=== PATIENT | male | born 1970 | race Caucasian/White ===

== ENCOUNTER 2021-04-19 00:11 | Inpatient (IN) ==
[2021-04-19 01:14] LABS: Basophils % 0.6 % (0.0-0.8); Eosinophils # 0.2 10*3/uL (0.0-0.87); Eosinophils % 3.2 % (0.00-10.9); Hematocrit 44.1 VOL% (42.0-52.0); Immature Granulocytes % 0.3 %; Immature Granulocytes Absolute 0.02 #; Lymphocytes # 2.1 10*3/uL (1.4-4.0); Lymphocytes % 32.2 % (21.2-54.2); Mean Corpuscular Volume 86.8 FL (87-102); Mean Platelet Volume 9.2 FL (9.6-12.0); Monocytes % 5.8 % (1.7-12.7); Neutrophils % 57.9 % (38.7-73.9); Platelet Count 240 T/CUMM (130-400); Red Blood Count 5.08 MC/CUMM (3.8-5.5); Red Cell Distribution Width 13.2 % (9.3-17.3); White Blood Count 6.6 T/CUMM (4-12)
[2021-04-19 01:26] LABS: Albumin 3.9 G/DL (3.4-5.0); Bilirubin,Total 1.3 MG/DL (0.20-1.00); Calcium 9.2 MG/DL (8.5-10.1); Potassium 4.2 MMOL/L (3.5-5.1)
[2021-04-19] MEDS ORDERED: DEXTROSE 50% 25 GM/50 ML VIAL IV PRN ×2 (02:16→10:51)
[2021-04-19] MEDS ORDERED: ACETAMINOPHEN 325 MG TABLET PO PRN (02:16)
[2021-04-19] MEDS ORDERED: GLUCAGON 1 MG VIAL IM PRN ×2 (02:16→10:51)
[2021-04-19] MEDS ORDERED: NITROGLYCERIN SL 0.4 MG TABLET SL ONE ×3 (03:52→11:44)
[2021-04-19 04:01] LABS: INR 0.9; PT Patient Result 10.3 SECS (10.5-12.0)
[2021-04-19] MEDS ORDERED: NICOTINE 21 MG/24 HR PATCH TRANSDERM PRN (04:20)
[2021-04-19] MEDS ORDERED: ENOXAPARIN 120 MG/0.8 ML SYRINGE SUBCUT ONE (04:26)
[2021-04-19] MEDS ORDERED: MORPHINE 2 MG/1 ML SYRINGE IM PRN (04:27)
[2021-04-19] MEDS ORDERED: ENOXAPARIN 120 MG/0.8 ML SYRINGE SUBCUT SCH (05:31)
[2021-04-19 06:44] LABS: Risk Ratio 6.93; VLDL Cholesterol 40.4 MG/DL
[2021-04-19] MEDS ORDERED: POTASSIUM CHLORIDE RIDER 10 MEQ/100 ML PREMIX IV PRN (08:30)
[2021-04-19] MEDS ORDERED: MAGNESIUM SULF RIDER 2 GM/50 ML PREMIX IV PRN (08:30)
[2021-04-19] MEDS ORDERED: LIDOCAINE 1% 20 ML VIAL ONE (08:30)
[2021-04-19] MEDS ORDERED: diphenhydrAMINE CAP 25 MG CAPSULE PO ONE (08:30)
[2021-04-19] MEDS ORDERED: DIAZEPAM 5 MG TABLET PO ONE (08:30)
[2021-04-19] MEDS ORDERED: HEPARIN/NACL 0.9% 2 UNITS/ML 3,000 UNIT/1,500 ML BAG IV ONE (08:30)
[2021-04-19] MEDS: ASPIRIN 325 MG TABLET PO SCH (08:49)
[2021-04-19] MEDS: SODIUM CHLORIDE 0.9% 1,000 ML IV SCH ×3 (08:50→17:20)
[2021-04-19] MEDS ORDERED: fentaNYL 100 MCG/2 ML VIAL ONE (08:55)
[2021-04-19] MEDS ORDERED: MIDAZOLAM 2 MG/2 ML VIAL ONE ×2 (08:55→09:17)
[2021-04-19] MEDS ORDERED: ENOXAPARIN 40 MG/0.4 ML SYRINGE SUBCUT SCH (09:00)
[2021-04-19] MEDS ORDERED: NITROGLYCERIN DRIP 50 MG/250 ML BOTTLE IV ONE (09:00)
[2021-04-19] MEDS ORDERED: VERAPAMIL 5 MG/2 ML VIAL ONE (09:00)
[2021-04-19] MEDS ORDERED: HEPARIN 5,000 UNIT/1 ML VIAL ONE (09:04)
[2021-04-19] MEDS ORDERED: MORPHINE 10 MG/1 ML VIAL ONE (10:04)
[2021-04-19] MEDS ORDERED: HEPARIN DRIP 25,000 UNITS/500 ML PREMIX IV ONE (10:14)
[2021-04-19] MEDS ORDERED: HEPARIN DRIP 25,000 UNITS/500 ML PREMIX IV SCH (10:30)
[2021-04-19] MEDS: NITROGLYCERIN SL 0.4 MG TABLET SL PRN (11:45)
[2021-04-19] MEDS: CHLORHEXIDINE 4% SOLN 118 ML BOTTLE TOP SCH ×2 (17:08→23:01)
[2021-04-19] MEDS: ROSUVASTATIN 20 MG TABLET PO SCH (17:09)
[2021-04-19 17:19] LABS: ABG Base Excess 0.2 MMOL/L (-2.5-2.5); ABG HCO3 24.6 MMOL/L (20-26); ABG PO2 75.8 MM HG (80-95); ABG TCO2 20.3 MMOL/L (23-27)
[2021-04-19] MEDS ORDERED: ZALEPLON 5 MG CAPSULE PO PRN (20:09)
[2021-04-19] MEDS: ASCORBIC ACID 500 MG TABLET PO SCH (22:48)
[2021-04-19] MEDS: CHLORHEXIDINE 0.12% ORAL RINSE 60 ML BOTTLE SWISH/SPIT SCH (22:49)
[2021-04-20] MEDS: NITROGLYCERIN SL 0.4 MG TABLET SL PRN ×3 (00:40→05:47)
[2021-04-20] MEDS ORDERED: hydrALAZINE 20 MG/1 ML VIAL IV ONE (00:42)
[2021-04-20] MEDS ORDERED: HYDROmorphone 2 MG/1 ML VIAL IV ONE (00:43)
[2021-04-20] MEDS ORDERED: HYDROmorphone 2 MG/1 ML VIAL IV PRN (00:43)
[2021-04-20] MEDS: SODIUM CHLORIDE 0.9% 1,000 ML IV SCH ×3 (01:27→17:53)
[2021-04-20] MEDS ORDERED: HEPARIN 5,000 UNIT/1 ML VIAL IV PRN (01:30)
[2021-04-20] MEDS ORDERED: HEPARIN DRIP 25,000 UNITS/500 ML PREMIX IV SCH (01:30)
[2021-04-20] MEDS ORDERED: VANCOMYCIN 500 MG VIAL ONE (04:55)
[2021-04-20] MEDS ORDERED: VANCOMYCIN 1,000 MG VIAL ONE (04:55)
[2021-04-20] MEDS ORDERED: PAPAVERINE 60 MG/2 ML VIAL ONE (04:55)
[2021-04-20] MEDS ORDERED: NITROGLYCERIN DRIP 50 MG/250 ML BOTTLE IV ONE ×2 (05:56→11:02)
[2021-04-20] MEDS ORDERED: PHENYLEPHRINE DRIP 20 MG/250 ML PREMIX IV ONE (05:56)
[2021-04-20] MEDS ORDERED: LACTATED RINGERS 1,000 ML IV ONE (06:10)
[2021-04-20] MEDS ORDERED: SODIUM CHLORIDE 0.9% 1,000 ML IV ONE (06:10)
[2021-04-20] MEDS ORDERED: SODIUM CHLORIDE 0.9% 250 ML IV ONE ×2 (06:10→10:56)
[2021-04-20] MEDS ORDERED: LIDOCAINE 2% 5 ML VIAL ONE ×2 (06:10→10:14)
[2021-04-20] MEDS ORDERED: AMINOCAPROIC ACID 5,000 MG/20 ML VIAL ONE (06:10)
[2021-04-20] MEDS ORDERED: VECURONIUM 10 MG VIAL IV ONE (06:10)
[2021-04-20] MEDS ORDERED: SEVOFLURANE 1 UNIT/15 MINUTE INH ONE ×2 (06:10→10:56)
[2021-04-20] MEDS ORDERED: MIDAZOLAM 10 MG/2 ML VIAL ONE ×3 (06:10)
[2021-04-20] MEDS ORDERED: MINERAL OIL/PETROLATUM OPH OINT 3.5 GM TUBE ONE (06:10)
[2021-04-20] MEDS ORDERED: CALCIUM CHLORIDE 1,000 MG/10 ML VIAL IV ONE (06:10)
[2021-04-20] MEDS ORDERED: ETOMIDATE 40 MG/20 ML VIAL IV ONE (06:10)
[2021-04-20] MEDS ORDERED: ePHEDrine 50 MG/ML VIAL ONE (06:10)
[2021-04-20] MEDS ORDERED: SUFentanil 250 MCG/5 ML AMP ONE (06:11)
[2021-04-20] MEDS ORDERED: CEFUROXIME INJ 1,500 MG in SODIUM CHLORIDE 0.9% 100 ML IV ONE (06:30)
[2021-04-20] MEDS ORDERED: PANTOPRAZOLE 40 MG TABLET PO ONE (06:30)
[2021-04-20] MEDS ORDERED: DIAZEPAM 5 MG TABLET PO ONE (06:30)
[2021-04-20 07:36] LABS: ABG Base Excess -0.6 MMOL/L (-2.5-2.5); ABG HCO3 24.2 MMOL/L (20-26); ABG Oxygen Saturation 99.2 % (95-100); ABG PCO2 40.6 MM HG (35-48); ABG PH 7.394 (7.35-7.45); ABG PO2 307.5 MM HG (80-95); ABG TCO2 25.5 MMOL/L (23-27); Glucose Heart Surgery 102 MG/DL (74-106); Hemoglobin Heart Surgery 13.5 G/DL (14.0-18.0); Ionized Calcium Arterial 1.12 MMOL/L (1.21-1.46); PCO2 Patient Temp Arterial 40.6 MMHG; PH Patient Temp Arterial 7.394; PO2 Patient Temp Arterial 307.5 MM HG; Patient Temperature 37 CELCIUS; Potassium Heart/CVR 3.5 MMOL/L (3.5-5.1); Sodium Heart/CVR 137 MMOL/L (135-145)
[2021-04-20 07:40] LABS: Bilirubin,Urine Negative (Negative); Blood, Urine Negative (Negative); Glucose,Urine (UA) Negative (Negative); Ketones,Urine Negative (Negative); Nitrite,Urine Negative (Negative); Protein,Urine Negative; RBC,Urine <1 /HPF (0-4); Squamous Epithelial Cell,Urine Occasional /HPF (0-10); Urine Appearance CLEAR (Clear); Urine Color Straw (Yellow); Urine Specific Gravity 1.008 (1.001-1.035); Urine Urobilinogen < 2.0 EU/DL (0.2-1.0)
[2021-04-20] MEDS ORDERED: SODIUM BICARBONATE 50 MEQ/50 ML VIAL IV ONE ×2 (07:52→10:15)
[2021-04-20] MEDS ORDERED: NITROPRUSSIDE 50 MG/2 ML VIAL ONE (07:52)
[2021-04-20] MEDS ORDERED: CALCIUM CHLORIDE 1,000 MG/10 ML SYRINGE IV ONE ×2 (07:53→07:54)
[2021-04-20] MEDS ORDERED: PHENYLEPHRINE DRIP 40 MG/250 ML PREMIX IV ONE (07:53)
[2021-04-20] MEDS ORDERED: POTASSIUM CHLORIDE RIDER 20 MEQ/100 ML PREMIX IV ONE (07:53)
[2021-04-20 08:51] LABS: Hematocrit Heart Surgery 31.3 PERCENT (42-52); Hemoglobin Heart Surgery 10.1 G/DL (14.0-18.0); PCO2 Patient Temp Venous 37.8 MM HG; PH Patient Temp Venous 7.428; PO2 Patient Temp Venous 37.1 MM HG; Potassium Heart/CVR 4.3 MMOL/L (3.5-5.1); VBG Base Excess 0.9 MEQ/L (0-4); VBG HCO3 24.9 MEQ/L (24-28); VBG Oxygen Saturation 80.9 %; VBG PCO2 43.7 MMHG (41-51); VBG PH 7.384; VBG PO2 45.7 MMHG (17-40); VBG Total CO2 23.8 MMOL/L
[2021-04-20 09:24] LABS: Hematocrit Heart Surgery 34.5 PERCENT (42-52); Hemoglobin Heart Surgery 11.2 G/DL (14.0-18.0); PCO2 Patient Temp Venous 33.3 MM HG; PH Patient Temp Venous 7.468; Potassium Heart/CVR 4.2 MMOL/L (3.5-5.1); VBG Base Excess 0.9 MEQ/L (0-4); VBG Oxygen Saturation 83.8 %; VBG PCO2 38.5 MMHG (41-51); VBG PH 7.424; VBG PO2 46.8 MMHG (17-40); VBG Total CO2 22.6 MMOL/L
[2021-04-20 10:11] LABS: ABG Base Excess -1.5 MMOL/L (-2.5-2.5); ABG HCO3 23.9 MMOL/L (20-26); ABG Oxygen Saturation 98.7 % (95-100); ABG PCO2 42.5 MM HG (35-48); ABG PH 7.367 (7.35-7.45); ABG PO2 185.8 MM HG (80-95); ABG TCO2 25.2 MMOL/L (23-27); Glucose Heart Surgery 185 MG/DL (74-106); Hemoglobin Heart Surgery 12.8 G/DL (14.0-18.0); Ionized Calcium Arterial 1.18 MMOL/L (1.21-1.46); PCO2 Patient Temp Arterial 42.5 MMHG; PH Patient Temp Arterial 7.367; PO2 Patient Temp Arterial 185.8 MM HG; Patient Temperature 37 CELCIUS; Potassium Heart/CVR 3.7 MMOL/L (3.5-5.1); Sodium Heart/CVR 133 MMOL/L (135-145)
[2021-04-20] MEDS ORDERED: MANNITOL 100 GM/500 ML BAG IV ONE (10:14)
[2021-04-20] MEDS ORDERED: ALBUMIN 25% 25 GM/100 ML VIAL IV ONE (10:14)
[2021-04-20] MEDS ORDERED: DEXTROSE 5% KCL 20 MEQ 20 MEQ/1,000 ML BAG IV ONE (10:14)
[2021-04-20] MEDS ORDERED: MAGNESIUM SULFATE 5 GM/10 ML VIAL IV ONE (10:14)
[2021-04-20] MEDS ORDERED: methylPREDNISolone SOD SUC 1,000 MG/8 ML VIAL ONE (10:14)
[2021-04-20] MEDS ORDERED: PROTAMINE SULFATE 250 MG/25 ML VIAL IV ONE (10:15)
[2021-04-20] MEDS ORDERED: HEPARIN 10,000 UNIT/10 ML VIAL ONE (10:15)
[2021-04-20] MEDS ORDERED: FUROSEMIDE 20 MG/2 ML VIAL ONE (10:15)
[2021-04-20] MEDS ORDERED: AMIODARONE 150 MG/3 ML VIAL ONE (10:25)
[2021-04-20] MEDS ORDERED: AMIODARONE 450 MG/9 ML VIAL IV ONE (10:29)
[2021-04-20] MEDS ORDERED: ALBUTEROL INHALER 18 GM INH ONE (10:56)
[2021-04-20] MEDS ORDERED: SODIUM CHLORIDE 0.9% 100 ML IV ONE (10:56)
[2021-04-20] MEDS ORDERED: PROTAMINE SULFATE 50 MG/5 ML VIAL IV ONE ×2 (10:58→11:10)
[2021-04-20] MEDS ORDERED: ACETAMINOPHEN 650 MG SUPP RECTAL PRN (11:03)
[2021-04-20] MEDS ORDERED: INSULIN REGULAR 100 UNIT/ML IV PRN (11:03)
[2021-04-20] MEDS ORDERED: MIDAZOLAM 2 MG/2 ML VIAL IV PRN (11:03)
[2021-04-20] MEDS ORDERED: MAGNESIUM SULF RIDER 4 GM/100 ML PREMIX IV PRN (11:03)
[2021-04-20] MEDS ORDERED: INSULIN REGULAR 100 UNIT/ML IV ONE (11:03)
[2021-04-20] MEDS ORDERED: PHENYLEPHRINE DRIP 40 MG/250 ML PREMIX IV PRN (11:03)
[2021-04-20] MEDS ORDERED: ONDANSETRON 4 MG/2 ML VIAL IV PRN (11:03)
[2021-04-20] MEDS ORDERED: DEXTROSE 50% 25 GM/50 ML VIAL IV PRN ×2 (11:03)
[2021-04-20] MEDS ORDERED: NITROPRUSSIDE 100 MG in DEXTROSE 5% 250 ML IV PRN (11:03)
[2021-04-20] MEDS ORDERED: CALCIUM CHLORIDE 1,000 MG/10 ML SYRINGE IV PRN (11:03)
[2021-04-20] MEDS ORDERED: VECURONIUM 10 MG VIAL IV PRN ×2 (11:03)
[2021-04-20] MEDS ORDERED: MAGNESIUM SULF RIDER 2 GM/50 ML PREMIX IV PRN (11:03)
[2021-04-20] MEDS ORDERED: POTASSIUM CHLORIDE RIDER 10 MEQ/100 ML PREMIX IV PRN (11:03)
[2021-04-20] MEDS ORDERED: SODIUM CHLORIDE 0.45% 1,000 ML IV SCH ×2 (11:03)
[2021-04-20] MEDS ORDERED: INSULIN REGULAR DRIP 100 ML IV SCH (11:03)
[2021-04-20] MEDS ORDERED: NITROGLYCERIN DRIP 50 MG/250 ML BOTTLE IV PRN (11:09)
[2021-04-20 11:11] LABS: Basophils % 0.2 % (0.0-0.8); Eosinophils # 0.1 10*3/uL (0.0-0.87); Eosinophils % 0.9 % (0.00-10.9); Hematocrit 40.7 VOL% (42.0-52.0); Hemoglobin 13.7 GM/DL (14.0-18.0); Immature Granulocytes % 0.3 %; Immature Granulocytes Absolute 0.03 #; Lymphocytes # 1.5 10*3/uL (1.4-4.0); Lymphocytes % 16.8 % (21.2-54.2); Mean Corpuscular HGB Conc 33.7 GM/DL (32-36); Mean Corpuscular Volume 88.1 FL (87-102); Mean Platelet Volume 8.9 FL (9.6-12.0); Monocytes % 3.1 % (1.7-12.7); Neutrophils % 78.7 % (38.7-73.9); Platelet Count 185 T/CUMM (130-400); Red Blood Count 4.62 MC/CUMM (3.8-5.5); Red Cell Distribution Width 13.4 % (9.3-17.3); White Blood Count 8.6 T/CUMM (4-12)
[2021-04-20 11:13] LABS: ABG Base Excess -0.5 MMOL/L (-2.5-2.5); ABG HCO3 24.7 MMOL/L (20-26); ABG Oxygen Saturation 98.1 % (95-100); ABG PCO2 42.5 MM HG (35-48); ABG PH 7.382 (7.35-7.45); ABG PO2 117.8 MM HG (80-95); Glucose Heart Surgery 189 MG/DL (74-106); Potassium Heart/CVR 4.5 MMOL/L (3.5-5.1)
[2021-04-20] MEDS: LACTATED RINGERS 250 ML IV PRN ×4 (11:29→13:54)
[2021-04-20] MEDS: ASPIRIN 325 MG TABLET PO SCH (11:29)
[2021-04-20] MEDS: ASCORBIC ACID 500 MG TABLET PO SCH (11:30)
[2021-04-20] MEDS: ROSUVASTATIN 20 MG TABLET PO SCH (11:30)
[2021-04-20] MEDS ORDERED: AMIODARONE INJ 450 MG in DEXTROSE 5% 241 ML IV SCH ×2 (11:30→18:30)
[2021-04-20] MEDS: CHLORHEXIDINE 0.12% ORAL RINSE 60 ML BOTTLE SWISH/SPIT SCH (11:30)
[2021-04-20] MEDS: CHLORHEXIDINE 4% SOLN 118 ML BOTTLE TOP SCH (11:31)
[2021-04-20] MEDS: KETOROLAC 30 MG/1 ML VIAL IV SCH ×3 (11:33→23:41)
[2021-04-20 11:35] LABS: CKMB % 4.8 %
[2021-04-20 11:37] LABS: High Sensitive Troponin I* 2342.9 ng/L (0-78)
[2021-04-20 11:45] LABS: INR 1.1; Partial Thromboplastin Time 27.2 SECS (23.8-32.1)
[2021-04-20 11:46] LABS: Albumin 3.5 G/DL (3.4-5.0); Bilirubin,Total 1.6 MG/DL (0.20-1.00); Calcium 9.5 MG/DL (8.5-10.1); Potassium 4.5 MMOL/L (3.5-5.1); Total Protein 6.6 G/DL (6.4-8.2)
[2021-04-20] MEDS: ALBUMIN 5% 12.5 GM/250 ML VIAL IV PRN ×2 (12:01→15:15)
[2021-04-20] MEDS: MIDAZOLAM 10 MG/2 ML VIAL IV PRN ×3 (12:22→13:54)
[2021-04-20 12:49] LABS: ABG Base Excess 0.7 MMOL/L (-2.5-2.5); ABG HCO3 25.1 MMOL/L (20-26); ABG PH 7.402 (7.35-7.45); ABG TCO2 22.4 MMOL/L (23-27); Glucose Heart Surgery 200 MG/DL (74-106); Hematocrit Heart Surgery 39.3 PERCENT (42-52); Hemoglobin Heart Surgery 12.8 G/DL (14.0-18.0); Potassium Heart/CVR 3.6 MMOL/L (3.5-5.1)
[2021-04-20] MEDS: POTASSIUM CHLORIDE RIDER 20 MEQ/100 ML PREMIX IV PRN ×4 (12:53→20:07)
[2021-04-20 13:47] LABS: ABG Base Excess 0.1 MMOL/L (-2.5-2.5); ABG HCO3 24.5 MMOL/L (20-26); ABG Oxygen Saturation 99.3 % (95-100); ABG PCO2 39.9 MM HG (35-48); ABG PH 7.401 (7.35-7.45); ABG TCO2 21.8 MMOL/L (23-27); Glucose Heart Surgery 191 MG/DL (74-106); Hematocrit Heart Surgery 38.2 PERCENT (42-52); Hemoglobin Heart Surgery 12.4 G/DL (14.0-18.0); Potassium Heart/CVR 4.2 MMOL/L (3.5-5.1)
[2021-04-20] MEDS: MORPHINE 10 MG/1 ML VIAL IV PRN ×3 (14:56→22:27)
[2021-04-20 16:44] LABS: ABG Base Excess 1.2 MMOL/L (-2.5-2.5); ABG HCO3 25.1 MMOL/L (20-26); ABG PCO2 37.3 MM HG (35-48); ABG PH 7.446 (7.35-7.45); ABG TCO2 26.3 MMOL/L (23-27)
[2021-04-20 16:45] LABS: ABG Oxygen Saturation 96.7 % (95-100); Glucose Heart Surgery 193 MG/DL (74-106); Hemoglobin Heart Surgery 12.2 G/DL (14.0-18.0); Potassium Heart/CVR 3.8 MMOL/L (3.5-5.1)
[2021-04-20] MEDS ORDERED: FUROSEMIDE 40 MG/4 ML VIAL ONE (18:13)
[2021-04-20] MEDS ORDERED: FUROSEMIDE 40 MG/4 ML VIAL IV ONE (18:16)
[2021-04-20] MEDS: CEFUROXIME INJ 1,500 MG in SODIUM CHLORIDE 0.9% 100 ML IV SCH (18:18)
[2021-04-20 19:19] LABS: ABG Base Excess 0.6 MMOL/L (-2.5-2.5); ABG HCO3 24.9 MMOL/L (20-26); ABG Oxygen Saturation 95.5 % (95-100); ABG PCO2 34.6 MM HG (35-48); ABG PH 7.451 (7.35-7.45); ABG PO2 72.2 MM HG (80-95); ABG TCO2 21.1 MMOL/L (23-27); Glucose Heart Surgery 205 MG/DL (74-106); Hemoglobin Heart Surgery 12.7 G/DL (14.0-18.0)
[2021-04-20 19:48] LABS: CKMB % 3.3 %
[2021-04-20] MEDS ORDERED: CHLORHEXIDINE 0.12% ORAL RINSE 60 ML BOTTLE SWISH/SPIT SCH (21:00)
[2021-04-20 21:15] LABS: ABG Base Excess 0.6 MMOL/L (-2.5-2.5); ABG HCO3 24.3 MMOL/L (20-26); ABG Oxygen Saturation 98.2 % (95-100); ABG PCO2 35.7 MM HG (35-48); ABG PO2 120.6 MM HG (80-95); ABG TCO2 25.4 MMOL/L (23-27); Glucose Heart Surgery 189 MG/DL (74-106); Hemoglobin Heart Surgery 12.8 G/DL (14.0-18.0); Potassium Heart/CVR 4.3 MMOL/L (3.5-5.1)
[2021-04-20 21:56] LABS: ABG Base Excess 0.1 MMOL/L (-2.5-2.5); ABG HCO3 24.5 MMOL/L (20-26); ABG Oxygen Saturation 98.4 % (95-100); ABG PCO2 37.1 MM HG (35-48); ABG PH 7.423 (7.35-7.45); ABG TCO2 21.3 MMOL/L (23-27); Glucose Heart Surgery 206 MG/DL (74-106); Hematocrit Heart Surgery 38.2 PERCENT (42-52); Hemoglobin Heart Surgery 12.4 G/DL (14.0-18.0); Potassium Heart/CVR 4.2 MMOL/L (3.5-5.1)
[2021-04-20 22:38] LABS: ABG Base Excess -1.1 MMOL/L (-2.5-2.5); ABG HCO3 23.5 MMOL/L (20-26); ABG Oxygen Saturation 98.4 % (95-100); ABG PCO2 37.1 MM HG (35-48); ABG PH 7.404 (7.35-7.45); ABG TCO2 20.4 MMOL/L (23-27); Glucose Heart Surgery 201 MG/DL (74-106); Hematocrit Heart Surgery 38.6 PERCENT (42-52); Hemoglobin Heart Surgery 12.5 G/DL (14.0-18.0); Potassium Heart/CVR 4.1 MMOL/L (3.5-5.1)
[2021-04-20 23:21] LABS: ABG Base Excess -0.6 MMOL/L (-2.5-2.5); ABG HCO3 23.9 MMOL/L (20-26); ABG Oxygen Saturation 99.1 % (95-100); ABG PCO2 37.4 MM HG (35-48); ABG TCO2 20.8 MMOL/L (23-27); Glucose Heart Surgery 208 MG/DL (74-106); Hematocrit Heart Surgery 38.7 PERCENT (42-52); Hemoglobin Heart Surgery 12.6 G/DL (14.0-18.0); Potassium Heart/CVR 4.2 MMOL/L (3.5-5.1)
[2021-04-21] MEDS: MORPHINE 10 MG/1 ML VIAL IV PRN (02:22)
[2021-04-21 03:44] LABS: ABG HCO3 25.3 MMOL/L (20-26); ABG Oxygen Saturation 97.7 % (95-100); ABG PCO2 34.3 MM HG (35-48); ABG PO2 89.5 MM HG (80-95); ABG TCO2 21.5 MMOL/L (23-27); Glucose Heart Surgery 189 MG/DL (74-106); Hematocrit Heart Surgery 36.8 PERCENT (42-52); Potassium Heart/CVR 3.9 MMOL/L (3.5-5.1)
[2021-04-21] MEDS: POTASSIUM CHLORIDE RIDER 20 MEQ/100 ML PREMIX IV PRN (03:52)
[2021-04-21] MEDS ORDERED: FUROSEMIDE 40 MG/4 ML VIAL IV ONE (03:57)
[2021-04-21 04:11] LABS: Albumin 3.7 G/DL (3.4-5.0); Bilirubin,Direct 0.24 MG/DL (0.0-0.20); Bilirubin,Total 0.6 MG/DL (0.20-1.00); Calcium 8.5 MG/DL (8.5-10.1); Osmolality,Calculated 280.7 MOS/KG (273-304); Potassium 3.9 MMOL/L (3.5-5.1); Total Protein 6.5 G/DL (6.4-8.2)
[2021-04-21 04:14] LABS: CKMB % 3.1 %
[2021-04-21 04:29] LABS: High Sensitive Troponin I* 21053.5 ng/L (0-78)
[2021-04-21] MEDS: KETOROLAC 30 MG/1 ML VIAL IV SCH ×4 (05:01→20:15)
[2021-04-21] MEDS: CEFUROXIME INJ 1,500 MG in SODIUM CHLORIDE 0.9% 100 ML IV SCH (06:44)
[2021-04-21] MEDS ORDERED: MAGNESIUM SULF RIDER 2 GM/50 ML PREMIX IV PRN (07:16)
[2021-04-21] MEDS ORDERED: ZALEPLON 5 MG CAPSULE PO PRN (07:16)
[2021-04-21] MEDS ORDERED: ACETAMINOPHEN 325 MG TABLET PO PRN (07:16)
[2021-04-21] MEDS ORDERED: POTASSIUM CHLORIDE 20 MEQ TABLET PO PRN (07:16)
[2021-04-21] MEDS ORDERED: DEXTROSE 50% 25 GM/50 ML VIAL IV PRN ×2 (07:16)
[2021-04-21] MEDS ORDERED: ALUMINUM/MAGNES/SIMETH MAX STR 30 ML UDCUP PO PRN (07:16)
[2021-04-21] MEDS ORDERED: MAGNESIUM HYDROXIDE SUSP 30 ML UDCUP PO PRN (07:16)
[2021-04-21] MEDS ORDERED: ONDANSETRON 4 MG/2 ML VIAL IV PRN (07:16)
[2021-04-21] MEDS ORDERED: GLUCAGON 1 MG VIAL IM PRN ×2 (07:16)
[2021-04-21] MEDS ORDERED: MAGNESIUM SULF RIDER 4 GM/100 ML PREMIX IV PRN (07:16)
[2021-04-21] MEDS ORDERED: MORPHINE 2 MG/1 ML SYRINGE IV PRN (07:16)
[2021-04-21] MEDS: DOCUSATE SODIUM 100 MG CAPSULE PO SCH (08:20)
[2021-04-21] MEDS: ASPIRIN EC 325 MG TABLET PO SCH (08:20)
[2021-04-21] MEDS: METOPROLOL TARTRATE 25 MG TABLET PO SCH ×2 (08:20→21:00)
[2021-04-21] MEDS: FERROUS SULFATE 325 MG TABLET PO SCH (08:20)
[2021-04-21] MEDS: oxyCODONE/ACETAMINOPHEN 5-325 MG TABLET PO PRN ×2 (08:21→16:48)
[2021-04-21] MEDS: PANTOPRAZOLE 40 MG TABLET PO SCH (08:22)
[2021-04-21] MEDS: SODIUM CHLOR 0.45% KCL 20 MEQ 20 MEQ/1,000 ML BAG IV SCH (08:23)
[2021-04-21] MEDS: CHLORHEXIDINE 0.12% ORAL RINSE 60 ML BOTTLE SWISH/SPIT SCH ×2 (08:32→21:01)
[2021-04-21] MEDS ORDERED: PANTOPRAZOLE 40 MG TABLET PO SCH (09:00)
[2021-04-21] MEDS: ASCORBIC ACID 500 MG TABLET PO SCH ×3 (09:45→21:00)
[2021-04-21] MEDS: ROSUVASTATIN 20 MG TABLET PO SCH (20:59)
[2021-04-22] MEDS: KETOROLAC 30 MG/1 ML VIAL IV SCH ×4 (01:31→20:37)
[2021-04-22 04:48] LABS: Basophils % 0.2 % (0.0-0.8); Eosinophils # 0.1 10*3/uL (0.0-0.87); Eosinophils % 0.8 % (0.00-10.9); Hematocrit 32.9 VOL% (42.0-52.0); Hemoglobin 10.7 GM/DL (14.0-18.0); Immature Granulocytes % 0.3 %; Immature Granulocytes Absolute 0.03 #; Lymphocytes # 1.6 10*3/uL (1.4-4.0); Lymphocytes % 17.7 % (21.2-54.2); Mean Corpuscular HGB Conc 32.5 GM/DL (32-36); Mean Corpuscular Volume 90.6 FL (87-102); Mean Platelet Volume 9.6 FL (9.6-12.0); Monocytes % 7.9 % (1.7-12.7); Neutrophils % 73.1 % (38.7-73.9); Platelet Count 203 T/CUMM (130-400); Red Blood Count 3.63 MC/CUMM (3.8-5.5); Red Cell Distribution Width 13.8 % (9.3-17.3); White Blood Count 8.9 T/CUMM (4-12)
[2021-04-22 05:05] LABS: Calcium 8.4 MG/DL (8.5-10.1); Osmolality,Calculated 277.8 MOS/KG (273-304)
[2021-04-22 05:09] LABS: Albumin 3.2 G/DL (3.4-5.0); Bilirubin,Direct 0.18 MG/DL (0.0-0.20); Bilirubin,Indirect 0.7 MG/DL (0.0-1.0); Bilirubin,Total 0.9 MG/DL (0.20-1.00); CKMB % 0.8 %; Calcium 8.4 MG/DL (8.5-10.1); Potassium 3.9 MMOL/L (3.5-5.1); Total Protein 6.2 G/DL (6.4-8.2)
[2021-04-22 05:10] LABS: High Sensitive Troponin I* 13868.3 ng/L (0-78)
[2021-04-22] MEDS ORDERED: FUROSEMIDE 40 MG/4 ML VIAL IV ONE (06:00)
[2021-04-22] MEDS: SODIUM CHLOR 0.45% KCL 20 MEQ 20 MEQ/1,000 ML BAG IV SCH (07:48)
[2021-04-22] MEDS: ASCORBIC ACID 500 MG TABLET PO SCH ×2 (09:24→20:37)
[2021-04-22] MEDS: FERROUS SULFATE 325 MG TABLET PO SCH (09:25)
[2021-04-22] MEDS: DOCUSATE SODIUM 100 MG CAPSULE PO SCH (09:25)
[2021-04-22] MEDS: CHLORHEXIDINE 0.12% ORAL RINSE 60 ML BOTTLE SWISH/SPIT SCH ×2 (09:25→20:37)
[2021-04-22] MEDS: PANTOPRAZOLE 40 MG TABLET PO SCH (09:25)
[2021-04-22] MEDS: ASPIRIN EC 325 MG TABLET PO SCH (09:25)
[2021-04-22] MEDS: METOPROLOL TARTRATE 25 MG TABLET PO SCH ×2 (09:25→20:37)
[2021-04-22] MEDS: oxyCODONE/ACETAMINOPHEN 5-325 MG TABLET PO PRN (11:33)
[2021-04-22] MEDS: ROSUVASTATIN 20 MG TABLET PO SCH (20:37)
[2021-04-23] MEDS: KETOROLAC 30 MG/1 ML VIAL IV SCH ×4 (01:42→18:24)
[2021-04-23 06:26] LABS: Basophils % 0.4 % (0.0-0.8); Eosinophils # 0.1 10*3/uL (0.0-0.87); Eosinophils % 1.9 % (0.00-10.9); Hematocrit 30.1 VOL% (42.0-52.0); Hemoglobin 9.9 GM/DL (14.0-18.0); Immature Granulocytes % 0.6 %; Immature Granulocytes Absolute 0.04 #; Lymphocytes # 1.7 10*3/uL (1.4-4.0); Mean Corpuscular HGB Conc 32.9 GM/DL (32-36); Mean Corpuscular Volume 90.4 FL (87-102); Mean Platelet Volume 9.5 FL (9.6-12.0); Monocytes % 7.9 % (1.7-12.7); Neutrophils % 65.2 % (38.7-73.9); Platelet Count 179 T/CUMM (130-400); Red Blood Count 3.33 MC/CUMM (3.8-5.5); Red Cell Distribution Width 13.6 % (9.3-17.3); White Blood Count 7.2 T/CUMM (4-12)
[2021-04-23 07:14] LABS: Calcium 8.2 MG/DL (8.5-10.1); Potassium 3.8 MMOL/L (3.5-5.1)
[2021-04-23 07:20] LABS: Alanine Aminotransferase 82 U/L (16-61); Albumin 2.9 G/DL (3.4-5.0); Alkaline Phosphatase 73 U/L (45-117); Aspartate Amino Transferase 47 U/L (0-37); Bilirubin,Indirect 0.4 MG/DL (0.0-1.0); Blood Urea Nitrogen 30 MG/DL (7-18); Calcium 8.3 MG/DL (8.5-10.1); Carbon Dioxide 28 MMOL/L (21-32); Estimated Glom Filtration Rate 107 ML/MIN; Glucose 99 MG/DL (74-106); Osmolality,Calculated 280.7 MOS/KG (273-304); Potassium 3.7 MMOL/L (3.5-5.1); Sodium 138 MMOL/L (136-145); Total Protein 6.1 G/DL (6.4-8.2)
[2021-04-23] MEDS: DOCUSATE SODIUM 100 MG CAPSULE PO SCH (09:44)
[2021-04-23] MEDS: ASPIRIN EC 325 MG TABLET PO SCH (09:44)
[2021-04-23] MEDS: FERROUS SULFATE 325 MG TABLET PO SCH (09:45)
[2021-04-23] MEDS: CHLORHEXIDINE 0.12% ORAL RINSE 60 ML BOTTLE SWISH/SPIT SCH ×2 (09:45→20:49)
[2021-04-23] MEDS: METOPROLOL TARTRATE 25 MG TABLET PO SCH ×2 (09:45→20:48)
[2021-04-23] MEDS: ASCORBIC ACID 500 MG TABLET PO SCH ×2 (09:45→20:48)
[2021-04-23] MEDS: PANTOPRAZOLE 40 MG TABLET PO SCH (09:45)
[2021-04-23] MEDS: ROSUVASTATIN 20 MG TABLET PO SCH (20:48)
[2021-04-24] MEDS: KETOROLAC 30 MG/1 ML VIAL IV SCH (00:32)
[2021-04-24] MEDS: ASPIRIN EC 325 MG TABLET PO SCH (09:23)
[2021-04-24] MEDS: CHLORHEXIDINE 0.12% ORAL RINSE 60 ML BOTTLE SWISH/SPIT SCH (09:24)
[2021-04-24] MEDS: PANTOPRAZOLE 40 MG TABLET PO SCH (09:24)
[2021-04-24] MEDS: METOPROLOL TARTRATE 25 MG TABLET PO SCH (09:24)
[2021-04-24] MEDS: ASCORBIC ACID 500 MG TABLET PO SCH (09:24)
[2021-04-24] MEDS: DOCUSATE SODIUM 100 MG CAPSULE PO SCH (09:24)
[2021-04-24] MEDS: FERROUS SULFATE 325 MG TABLET PO SCH (09:24)
[2021-04-24 14:32] VITALS: BP 114/55
== END 2021-04-24 16:03 | disposition home or self-care (01) | DRG 234 ==
LOC: N.ED 00:11 → N.EDINP 00:11 → SUATTDRO 02:16 → N.TELES 09:13 → N.CVR 04-20 10:22 → N.ICU 04-21 11:05 → N.TELES 04-21 14:48
PROVIDERS: ADMIT Internal Medicine
PROC: CLCCHCL (ICD-10-PCS; 2021-04-19 09:45)